=== PATIENT | female | born 1950 | race Caucasian/White ===

== ENCOUNTER 2016-07-08 04:39 | Day surgery (SDC) | payer BC ==
[~2016-07-08 04:39] MED LIST: ACET500CAP PO; ALEVE220 MG PO; ALLEGRA180 PO; ANOROELLIPTA INH; AUG875 PO; CARDCD300 PO; CELEBREX2 PO; CINNAMONPO PO; CRESTOR10 PO; FLONASE NAS; FLOVENT DISK50 MCG INH; HCTZ25B PO; HYDROCHLOROT25 MG PO; LEVOTHYROXIN125 MCG PO; LEVOTHYROXIN137 MCG PO; LIPITOR10 PO; LIPITOR40 PO; METHOC500B PO; MICRO-K10 MEQ PO; MOBIC15 MG PO; MUCINEX1200 MG PO; MULTIPLE VIT PO; NEUR100 PO; OXYCOD PO; PRILOSEC10 MG PO; PRILOSEC40 MG PO; PROBIOTIC PO; SEPTRA1 TAB PO; SINGULAIR1 PO; TART CHERRY PO; TIAZA3 PO; ULTRAM50 PO; XOPENEX HFA INH; ZANTAC300 MG PO; ZYRTEC ALLGY10 MG PO; [UNRECOGNIZED DRUG - OTHER] PO
== END 2016-07-08 07:03 | disposition home or self-care (01) ==
LOC: SDC 04:39
PROVIDERS: Orthopaedic Surgery Orthopaedic Surgery of the Spine
PROC: 3E0S33Z Introduction of Anti-inflammatory into Epidural Space, Percutaneous Approach (ICD-10-PCS; principal; 2016-07-08 07:15)
DX: M54.16 Radiculopathy, lumbar region (principal); I10 Essential (primary) hypertension; E78.00 Pure hypercholesterolemia, unspecified; K21.9 Gastro-esophageal reflux disease without esophagitis; J44.9 Chronic obstructive pulmonary disease, unspecified; M19.90 Unspecified osteoarthritis, unspecified site; H91.90 Unspecified hearing loss, unspecified ear; E03.9 Hypothyroidism, unspecified; Z90.49 Acquired absence of other specified parts of digestive tract; Z90.710 Acquired absence of both cervix and uterus; Z98.890 Other specified postprocedural states
CPT/HCPCS: J2250; J3010; Q9967